=== PATIENT | male | born 1930 | race Caucasian/White ===

== ENCOUNTER 2017-01-29 08:25 | Emergency (ER) | payer MEDICARE ==
[~2017-01-29] VITALS: Ht 167.6 cm; Wt 70.0 kg
[~2017-01-29 08:25] MED LIST: LIPI10TA PO; METO25TA3 PO; MULT1TAB46 PO; OXYC1TAB35 PO; VITA250T3 PO
[2017-01-29 08:40] VITALS: BP 145/63; PULSE 65; RESP 15; TEMP 98.6; O2SAT 95
[2017-01-29 09:22] LABS: AUTOMATED NEUTROPHIL # 12.7 TH/MM3 (1.8-7.7); BASOPHIL # 0.1 TH/MM3 (0-0.2); BASOPHIL % 0.2 % (0.0-2.0); HEMATOCRIT 29.5 % (39.0-51.0); LYMPH % 8.6 % (9.0-44.0); LYMPHOCYTE # 2.3 TH/MM3 (1.0-4.8); MEAN CELL VOLUME 82.6 FL (80.0-100.0); MEAN CORPUSCULAR HEMOGLOBIN 26.7 PG (27.0-34.0); MEAN CORPUSCULAR HGB CONC 32.3 % (32.0-36.0); MONO % 43.7 % (0.0-8.0); NEUT % 47.5 % (16.0-70.0); PLATELET COUNT 65 TH/MM3 (150-450); RED BLOOD COUNT 3.57 MIL/MM3 (4.50-5.90); RED CELL DISTRIBUTION WIDTH 19.4 % (11.6-17.2); WHITE BLOOD COUNT 26.8 TH/MM3 (4.0-11.0)
[2017-01-29 09:24] LABS: HEMO FLAGS AUTO DIFF
[2017-01-29 09:36] LABS: BACTERIA, URINE RARE /hpf; BLOOD, URINE LARGE (NEG); GLUCOSE,URINE NEG (NEG); KETONE, URINE NEG (NEG); NITRITE,URINE NEG (NEG); PH, URINE 5.5 (5.0-8.5); URINE COLOR YELLOW (YELLW/STRAW)
[2017-01-29 09:37] LABS: COMMENT (UR) CULT NOT INDICATED; CULTURE IF INDICATED CULT NOT INDICATED
[2017-01-29 09:39] LABS: ANION GAP 10 MEQ/L (5-15); AST (GOT) 23 U/L (15-37); BICARBONATE 24.3 MEQ/L (21.0-32.0); BLOOD UREA NITROGEN 30 MG/DL (7-18); CHLORIDE 109 MEQ/L (98-107); GLOMERULAR FILTRATION RATE 29 ML/MIN (>89); SODIUM (NA) 143 MEQ/L (136-145)
[2017-01-29 09:46] LABS: ALKALINE PHOSPHATASE 138 U/L (45-117); ALT (GPT) 28 U/L (12-78); TOTAL BILIRUBIN ADULT 0.6 MG/DL (0.2-1.0)
[2017-01-29 10:20] LABS: BANDS 6 % (0-6); METAMYELOCYTES 1 % (0-1); MYELOCYTES 1 % (0-0); NEUTROPHIL # MANUAL DIFF 14.7 TH/MM3 (1.8-7.7); POLYS (SEG NEUTROPHILS) 47 % (16-70); WBC DIFF SAMPLE 100
[2017-01-29 10:21] LABS: PLATELET ESTIMATE SMEAR LOW (NORMAL); PLATELET MORPHOLOGY NORMAL (NORMAL); SCAN/DIFF FINAL DIFF MANUAL
--- NOTE | 2017-01-29 10:37 | PD ---
HPI Chief Complaint: General Weakness Time Seen by Provider: 08:42 Travel History International Travel<30 days: No Contact w/Intl Traveler<30days: No Traveled to known affect area: No History of Present Illness HPI An 86-year-old man who presents to the emergency department brought in by his via EMS for generalized weakness. He is a history of CVA hypertension and low platelets. He recently had surgery for removal multiple basal cell carcinomas on the scalp, right neck, and right hand, with skin graft from his right leg. This was done by Dr. Manav fall. He's been home for couple days and is gotten progressively more weak. Normally he can walk with a lot of assistance from his . Now is unable to get out of bed. No other complaints. 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 Hypertension Oh platelets Social History Alcohol Use: No Tobacco Use: No (QUIT 2001) Allergies-Medications (Allergen,Severity, Reaction): Coded Allergies: penicillin G (Verified Allergy, Severe, RASH, 01/29/17) Reported Meds & Prescriptions Reported Meds & Active Scripts Active Oxycodone-Acetaminophen 7.5-325 mg Tab 1 Tab PO Q4H PRN 5 Days Reported Vitamin C (Ascorbic Acid) 250 Mg Tab 500 Mg PO Multi Vitamin Daily (Multiple Vitamin) 1 Tab Tab PO DAILY Metoprolol Tartrate 25 Mg Tab 25 Mg PO BID Lipitor (Atorvastatin Calcium) 10 Mg Tab 10 Mg PO DAILY Review of Systems Except as stated in HPI: all other systems reviewed are Neg Physical Exam Narrative GENERAL: Elderly 86-year-old man, pale, weak appearing. SKIN: Focused skin assessment warm/dry. HEAD: Large bandage on his head with multiple areas of bandage staple to the skin. EYES: Pupils equal and round. No scleral icterus. No injection or drainage. ENT: No nasal bleeding or discharge. Mucous membranes pink and moist. NECK: Trachea midline. No JVD. CARDIOVASCULAR: Regular rate and rhythm. No murmur appreciated. RESPIRATORY: No accessory muscle use. Clear to auscultation. Breath sounds equal bilaterally. GASTROINTESTINAL: Abdomen soft, non-tender, nondistended. Hepatic and splenic margins not palpable. MUSCULOSKELETAL: No obvious deformities. No edema. NEUROLOGICAL: Awake and alert. No obvious cranial nerve deficits. Motor grossly within normal limits. Normal speech. PSYCHIATRIC: Appropriate mood and affect; insight and judgment normal. Data Data Last Documented VS Vital Signs Date Time Temp Pulse Resp B/P (MAP) Pulse Ox O2 Delivery O2 Flow Rate FiO2 01/29/17 08:40 98.6 65 15 145/63 (90) 95 Room Air Orders Orders Complete Blood Count With Diff (01/29/17 08:42) Comprehensive Metabolic Panel (01/29/17 08:42) Iv Access Insert/Monitor (01/29/17 08:42) Cath For Specimen (01/29/17 08:42) Urinalysis - C+S If Indicated (01/29/17 08:42) Labs Laboratory Tests Test 01/29/17 09:15 White Blood Count 26.8 TH/MM3 Red Blood Count 3.57 MIL/MM3 Hemoglobin 9.5 GM/DL Hematocrit 29.5 % Mean Corpuscular Volume 82.6 FL Mean Corpuscular Hemoglobin 26.7 PG Mean Corpuscular Hemoglobin Concent 32.3 % Red Cell Distribution Width 19.4 % Platelet Count 65 TH/MM3 Mean Platelet Volume 8.9 FL Neutrophils (%) (Auto) 47.5 % Lymphocytes (%) (Auto) 8.6 % Monocytes (%) (Auto) 43.7 % Eosinophils (%) (Auto) 0.0 % Basophils (%) (Auto) 0.2 % Neutrophils # (Auto) 12.7 TH/MM3 Lymphocytes # (Auto) 2.3 TH/MM3 Monocytes # (Auto) 11.7 TH/MM3 Eosinophils # (Auto) 0.0 TH/MM3 Basophils # (Auto) 0.1 TH/MM3 CBC Comment AUTO DIFF Differential Total Cells Counted 100 Neutrophils % (Manual) 47 % Band Neutrophils % 6 % Lymphocytes % 12 % Monocytes % 33 % Neutrophils # (Manual) 14.7 TH/MM3 Metamyelocytes 1 % Myelocytes 1 % Differential Comment FINAL DIFF MANUAL Platelet Estimate LOW Platelet Morphology Comment NORMAL Urine Color YELLOW Urine Turbidity CLEAR Urine pH 5.5 Urine Specific [place] 1.018 Urine Protein 30 mg/dL Urine Glucose (UA) NEG mg/dL Urine Ketones NEG mg/dL Urine Occult Blood LARGE Urine Nitrite NEG Urine Bilirubin NEG Urine Urobilinogen LESS THAN 2.0 MG/DL Urine Leukocyte Esterase NEG Urine RBC 104 /hpf Urine WBC 3 /hpf Urine Bacteria RARE /hpf Microscopic Urinalysis Comment CULT NOT INDICATED Blood Urea Nitrogen 30 MG/DL Creatinine 2.18 MG/DL Random Glucose 144 MG/DL Total Protein 7.7 GM/DL Albumin 3.2 GM/DL Calcium Level 9.3 MG/DL Alkaline Phosphatase 138 U/L Aspartate Amino Transf (AST/SGOT) 23 U/L Alanine Aminotransferase (ALT/SGPT) 28 U/L Total Bilirubin 0.6 MG/DL Sodium Level 143 MEQ/L Potassium Level 4.0 MEQ/L Chloride Level 109 MEQ/L Carbon Dioxide Level 24.3 MEQ/L Anion Gap 10 MEQ/L Estimat Glomerular Filtration Rate 29 ML/MIN MDM Medical Decision Making Medical Screen Exam Complete: Yes Emergency Medical Condition: Yes Interpretation(s) LABS: CBC remarkable for prominent leukocytosis, anemia, normal cytopenia. CMP remarkable for mildly elevated BUN/creatinine consistent with baseline Catheter UA: Hematuria Differential Diagnosis Weakness, infection, anemia, debility, other Narrative Course Medical decision making Is an 86-year-old man who presents emergent arm worsening generalized weakness. Is unable to care for himself at home. He's has marked leukocytosis, which may be related to some underlying bone marrow abnormality. The trauma cytopenias known. We'll discuss with [facility], admission versus observation and custodial longterm placement. I spoke with Dr. Manav fall. He states that unless there is bleeding through the bandage he does not want the bandage change as they are protecting skin grafts. I spoke with Dr. Jaimes. We will the patient would be a candidate for longterm placement. We'll monitor chronic changes and blood counts. Previous he recommended for a bone marrow biopsy but declined. really does not want patient to go to a rehabilitation facility. She would prefer home health which I think is reasonable. We'll set up home health Additional Instructions: Follow-up with Dr. Cid on Saturday as scheduled. Return to the emergency department for any new or worsening symptoms. Med/Other Pt SpecificInfo: Prescription(s) given Disposition: DISCHARGE HOME Condition: Stable Chinmay Qureshi MD Jan 29, 2017 10:37
--- NOTE | 2017-01-29 11:18 | HHI.FF ---
Face to Face Verification Diagnosis: (1) Basal cell carcinoma (2) Weakness (3) Myelodysplasia (myelodysplastic syndrome) Physical Therapy Order: Evaluate and Treat, Improve ambulation, Strength and gait training Home Health Nursing Order: Medical education Signs/symptoms of disease process Wound care and dressing changes Instructions: Do not change bandages until initial follow-up appointment with Dr. Cid on January 31. Home Health Aide Order: To Assist In: Bathing and personal care I have seen patient Ruddy Mireles Jr Cullen on 01/29/17. My clinical findings support the need for the requested home health care services because: Deconditioned w/ increased weakness Limited ability to care for self High risk of falls I certify that my clinical findings support that this patient is homebound because: Post-op weakness Unsafe to leave home unassisted Chinmay Qureshi MD Jan 29, 2017 11:18
--- NOTE | 2017-01-29 12:16 | PD ---
Data Data Last Documented VS Vital Signs Date Time Temp Pulse Resp B/P (MAP) Pulse Ox O2 Delivery O2 Flow Rate FiO2 01/29/17 08:40 98.6 65 15 145/63 (90) 95 Room Air Orders Orders Complete Blood Count With Diff (01/29/17 08:42) Comprehensive Metabolic Panel (01/29/17 08:42) Iv Access Insert/Monitor (01/29/17 08:42) Cath For Specimen (01/29/17 08:42) Urinalysis - C+S If Indicated (01/29/17 08:42) Ed Discharge Order (01/29/17 11:18) ^ Home Health (01/29/17 11:18) (Hub Use Only)Inp Phy Cons/Ref (01/29/17 ) Labs Laboratory Tests Test 01/29/17 09:15 White Blood Count 26.8 TH/MM3 Red Blood Count 3.57 MIL/MM3 Hemoglobin 9.5 GM/DL Hematocrit 29.5 % Mean Corpuscular Volume 82.6 FL Mean Corpuscular Hemoglobin 26.7 PG Mean Corpuscular Hemoglobin Concent 32.3 % Red Cell Distribution Width 19.4 % Platelet Count 65 TH/MM3 Mean Platelet Volume 8.9 FL Neutrophils (%) (Auto) 47.5 % Lymphocytes (%) (Auto) 8.6 % Monocytes (%) (Auto) 43.7 % Eosinophils (%) (Auto) 0.0 % Basophils (%) (Auto) 0.2 % Neutrophils # (Auto) 12.7 TH/MM3 Lymphocytes # (Auto) 2.3 TH/MM3 Monocytes # (Auto) 11.7 TH/MM3 Eosinophils # (Auto) 0.0 TH/MM3 Basophils # (Auto) 0.1 TH/MM3 CBC Comment AUTO DIFF Differential Total Cells Counted 100 Neutrophils % (Manual) 47 % Band Neutrophils % 6 % Lymphocytes % 12 % Monocytes % 33 % Neutrophils # (Manual) 14.7 TH/MM3 Metamyelocytes 1 % Myelocytes 1 % Differential Comment FINAL DIFF MANUAL Platelet Estimate LOW Platelet Morphology Comment NORMAL Urine Color YELLOW Urine Turbidity CLEAR Urine pH 5.5 Urine Specific [place] 1.018 Urine Protein 30 mg/dL Urine Glucose (UA) NEG mg/dL Urine Ketones NEG mg/dL Urine Occult Blood LARGE Urine Nitrite NEG Urine Bilirubin NEG Urine Urobilinogen LESS THAN 2.0 MG/DL Urine Leukocyte Esterase NEG Urine RBC 104 /hpf Urine WBC 3 /hpf Urine Bacteria RARE /hpf Microscopic Urinalysis Comment CULT NOT INDICATED Blood Urea Nitrogen 30 MG/DL Creatinine 2.18 MG/DL Random Glucose 144 MG/DL Total Protein 7.7 GM/DL Albumin 3.2 GM/DL Calcium Level 9.3 MG/DL Alkaline Phosphatase 138 U/L Aspartate Amino Transf (AST/SGOT) 23 U/L Alanine Aminotransferase (ALT/SGPT) 28 U/L Total Bilirubin 0.6 MG/DL Sodium Level 143 MEQ/L Potassium Level 4.0 MEQ/L Chloride Level 109 MEQ/L Carbon Dioxide Level 24.3 MEQ/L Anion Gap 10 MEQ/L Estimat Glomerular Filtration Rate 29 ML/MIN MDM Supervised Visit with FRANK: No Diagnosis Primary Impression: Weakness Additional Impressions: Myelodysplasia (myelodysplastic syndrome) Basal cell carcinoma Patient Instructions: General Instructions Departure Forms: Tests/Procedures Additional Instruction: Follow-up with Dr. Cid on Saturday as scheduled. Return to the emergency department for any new or worsening symptoms. Disposition: DISCHARGE HOME Condition: Stable Chinmay Qureshi MD Jan 29, 2017 12:16
== END 2017-01-29 12:35 | disposition home or self-care (01) ==
LOC: NEPC 08:25
DX: R53.1 Weakness (principal); D46.9 Myelodysplastic syndrome, unspecified; C44.41 Basal cell carcinoma of skin of scalp and neck; C79.2 Secondary malignant neoplasm of skin; C79.89 Secondary malignant neoplasm of other specified sites; I69.951 Hemiplegia and hemiparesis following unspecified cerebrovascular disease affecting right dominant side; I10 Essential (primary) hypertension; D72.829 Elevated white blood cell count, unspecified; Z79.899 Other long term (current) drug therapy
CPT/HCPCS: 80053; 81001; 85007; 85027; 99283; P9612

== ENCOUNTER 2017-02-06 05:27 | Inpatient (IN) | payer MEDICARE ==
[~2017-02-06] VITALS: Ht 170.2 cm; Wt 70.9 kg
[2017-02-06] MEDS ORDERED: LIDOCAINE 1%/EPINEPHrine 1:100,000 SOLN 20 ML VIAL ONE (05:35)
[2017-02-06 05:40] VITALS: BP_SYST 82; BP_SYST 85; BP_DIAS 45; BP_DIAS 48; PULSE 97; RESP 16; TEMP 98; O2SAT 97
[2017-02-06 05:58] VITALS: BP 106/60; PULSE 96; RESP 16; O2SAT 97
--- NOTE | 2017-02-06 05:59 | PD ---
HPI Chief Complaint: Laceration/Skin Injury Time Seen by Provider: 05:57 Travel History International Travel<30 days: No Contact w/Intl Traveler<30days: No Traveled to known affect area: No History of Present Illness HPI Patient is an 86-year-old male coming from home 3 weeks ago he had skin grafts for basal cell carcinoma and tonight an area near the suture site started to bleed pumping slightly like an arteriole. Patient denies pain but found him to be covered in blood paramedics there was a lot of blood at the scene. Patient's pressure initially is 85/40 but he has not altered he does not look significantly help. Bleeding is immediately controlled with pressure directly from the nurse. I am called to bedside where we get a cauterizing agent a powderlike silver nitrate with a Q-tip applied pressure and then I injected 1% with epi to the area and the bleeding stops labs are sent type and screen H&H for further evaluation. Patient has a platelet disorder apparently that causes him to bleed more than normal according to . 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) Endocrine: Yes Genitourinary: Yes (BLADDER CA) Immune Disorder: No Musculoskeletal: No Neurologic: Yes (CVA, NEUROPATHY, MONOPLEGIA OF RIGHT LOWER LIMB) Psychiatric: No Reproductive: No Respiratory: Yes (HX OF PNEUMONIA) Thyroid Disease: No Past Surgical History AICD: No Arteriovenous Shunt: No Eye Surgery: Yes (FROM STROKE) Genitourinary Surgery: Yes (BLADDER CA- SCRAPED BLADDER, CYSTOSCOPY) Insulin Pump: No Joint Replacement: No Pacemaker: No Other Surgery: Yes Social History Alcohol Use: No Tobacco Use: No (QUIT 2001) Substance Use: No Allergies-Medications (Allergen,Severity, Reaction): Coded Allergies: penicillin G (Verified Allergy, Severe, RASH, 02/06/17) Reported Meds & Prescriptions Reported Meds & Active Scripts Active Oxycodone-Acetaminophen 7.5-325 mg Tab 1 Tab PO Q4H PRN 5 Days Reported Vitamin C (Ascorbic Acid) 250 Mg Tab 500 Mg PO Multi Vitamin Daily (Multiple Vitamin) 1 Tab Tab PO DAILY Metoprolol Tartrate 25 Mg Tab 25 Mg PO BID Lipitor (Atorvastatin Calcium) 10 Mg Tab 10 Mg PO DAILY Review of Systems Except as stated in HPI: all other systems reviewed are Neg (bleeding from arteriole in yazidi on left scalp ) Skin: Positive Other (patient is bleeding from a skin tag in the middle of his surgical skin graft to his left forehead arterial pumping) Physical Exam Narrative GENERAL: excessive blood coagulated on ear from arteriole leaking from left yazidi. SKIN: Warm and dry. oozing pumping arteriole left skin tag HEAD: Atraumatic. Normocephalic. Patient has a arterial that is pumping pulsating blood right above the yazidi in the middle of the skin graft whether is a skin tag it seems to be hyper vascularized losing pulsating blood is down the entire ear and cheek coagulating EYES: Pupils equal and round. No scleral icterus. No injection or drainage. ENT: No nasal bleeding or discharge. Mucous membranes pink and moist. NECK: Trachea midline. No JVD. CARDIOVASCULAR: Regular rate and rhythm. RESPIRATORY: No accessory muscle use. Clear to auscultation. Breath sounds equal bilaterally. GASTROINTESTINAL: Abdomen soft, non-tender, nondistended. Hepatic and splenic margins not palpable. MUSCULOSKELETAL: Extremities without clubbing, cyanosis, or edema. No obvious deformities. NEUROLOGICAL: Awake and alert. No obvious cranial nerve deficits. Motor grossly within normal limits. Five out of 5 muscle strength in the arms and legs. Normal speech. PSYCHIATRIC: Appropriate mood and affect; insight and judgment normal. Data Data Last Documented VS Vital Signs Date Time Temp Pulse Resp B/P (MAP) Pulse Ox O2 Delivery O2 Flow Rate FiO2 02/06/17 06:48 91 16 102/58 (73) 96 Room Air 02/06/17 05:40 98.0 Orders Orders Lidocai-Epi 1%-1:100,000 Inj (Xylocaine- (02/06/17 05:35) Lidocai-Epi 1%-1:100,000 Inj (Xylocaine- (02/06/17 06:15) Complete Blood Count With Diff (02/06/17 06:06) Comprehensive Metabolic Panel (02/06/17 06:06) Prothrombin Time / Inr (Pt) (02/06/17 06:06) Type And Screen (02/06/17 06:06) Wound Care (02/06/17 06:07) Sodium Chlor 0.9% 250 Ml Inj (Ns 250 Ml (02/06/17 07:00) Chest, Single Ap (02/06/17 06:52) Urinalysis - C+S If Indicated (02/06/17 06:54) Admit Order (Ed Use Only) (02/06/17 07:09) Atorvastatin (Lipitor) (02/06/17 09:00) Metoprolol Tartrate (Lopressor) (02/06/17 09:00) Admit To Inpatient (02/06/17 ) Vital Signs (Adult) Q4H (02/06/17 08:25) Activity Bed Rest With Brp (02/06/17 08:25) Intake + Output FABRICE.QSHIFT (02/06/17 08:25) Sodium Chloride 0.9% Flush (Ns Flush) (02/06/17 08:30) Sodium Chloride 0.9% Flush (Ns Flush) (02/06/17 09:00) Acetaminophen (Tylenol) (02/06/17 08:30) Ondansetron Inj (Zofran Inj) (02/06/17 08:30) Comprehensive Metabolic Panel (02/07/17 06:00) Complete Blood Count With Diff (02/07/17 06:00) Naloxone Inj (Narcan Inj) (02/06/17 08:30) Inpatient Certification (02/06/17 ) Artemio Bilateral/Knee High FABRICE.QSHIFT (02/06/17 08:25) Labs Laboratory Tests Test 02/06/17 05:40 White Blood Count 70.4 TH/MM3 Red Blood Count 3.11 MIL/MM3 Hemoglobin 8.4 GM/DL Hematocrit 25.9 % Mean Corpuscular Volume 83.1 FL Mean Corpuscular Hemoglobin 27.1 PG Mean Corpuscular Hemoglobin Concent 32.6 % Red Cell Distribution Width 18.5 % Platelet Count 192 TH/MM3 Mean Platelet Volume 9.9 FL CBC Comment AUTO DIFF Differential Total Cells Counted 100 Neutrophils % (Manual) 59 % Band Neutrophils % 11 % Lymphocytes % 6 % Monocytes % 15 % Neutrophils # (Manual) 55.6 TH/MM3 Metamyelocytes 5 % Myelocytes 4 % Differential Comment FINAL DIFF MANUAL Platelet Estimate NORMAL Platelet Morphology Comment NORMAL Prothrombin Time 12.5 SEC Prothromb Time International Ratio 1.1 RATIO Blood Urea Nitrogen 54 MG/DL Creatinine 3.10 MG/DL Random Glucose 261 MG/DL Total Protein 7.3 GM/DL Albumin 2.7 GM/DL Calcium Level 8.5 MG/DL Alkaline Phosphatase 140 U/L Aspartate Amino Transf (AST/SGOT) 34 U/L Alanine Aminotransferase (ALT/SGPT) 39 U/L Total Bilirubin 0.5 MG/DL Sodium Level 142 MEQ/L Potassium Level 4.7 MEQ/L Chloride Level 110 MEQ/L Carbon Dioxide Level 18.3 MEQ/L Anion Gap 14 MEQ/L Estimat Glomerular Filtration Rate 19 ML/MIN MDM Medical Decision Making Medical Screen Exam Complete: Yes Emergency Medical Condition: Yes Differential Diagnosis Arterial bleed versus venule bleed versus hypervascular skin tag bleeding versus coagulopathy Narrative Course I get the cauterizing chemical powder apply it with a Q-tip to the area that I have been holding pressure on and then I apply pressure within a be deep had over the cauterizing chemical bleeding is stopped with the cauterization and then a wound dressing is placed over the Q-tip with the cauterizing material which has stopped bleeding clots forming. I didn't call admit him for the anemia which possibly is related to the blood loss from this arterial bleed that was happening all night while he was sleeping as well as the 70 WBCs and his serum which possibly is related to some kind of blastic crisis. He was seen by a hematoma doctor while he was being preop'd for the skin graft in December. was only aware that he was having platelet issues but did not know anything about any blast white blood cells. I discussed it with the admitting Dr. Abner Sheridan who is going to admit the patient patient is stable at this time possibly will need blood transfusion hematology consult and as plastics or skin consult for the bleed that is cauterized successfully controlled at this point. Admit to medicine Diagnosis Primary Impression: Bleeding diathesis Additional Impression: Hemorrhagic diathesis Admitting Information Admitting Physician Requests: Barrington Chambers MD Feb 06, 2017 05:59
[2017-02-06] MEDS ORDERED: LIDOCAINE 1%/EPINEPHrine 1:100,000 SOLN 20 ML VIAL INFIL ONE (06:15)
[2017-02-06 06:24] LABS: HEMATOCRIT 25.9 % (39.0-51.0); MEAN CELL VOLUME 83.1 FL (80.0-100.0); MEAN CORPUSCULAR HEMOGLOBIN 27.1 PG (27.0-34.0); MEAN CORPUSCULAR HGB CONC 32.6 % (32.0-36.0); PLATELET COUNT 192 TH/MM3 (150-450); RED BLOOD COUNT 3.11 MIL/MM3 (4.50-5.90); RED CELL DISTRIBUTION WIDTH 18.5 % (11.6-17.2); WHITE BLOOD COUNT 70.4 TH/MM3 (4.0-11.0)
[2017-02-06 06:32] LABS: CHLORIDE 110 MEQ/L (98-107); POTASSIUM 4.7 MEQ/L (3.5-5.1); SODIUM (NA) 142 MEQ/L (136-145)
[2017-02-06 06:33] LABS: HEMO FLAGS AUTO DIFF
[2017-02-06 06:35] LABS: INTERNATIONAL NORMALIZED RATIO 1.1 RATIO; PROTHROMBIN TIME - PATIENT 12.5 SEC (9.8-11.6)
[2017-02-06 06:36] LABS: ANION GAP 14 MEQ/L (5-15); BICARBONATE 18.3 MEQ/L (21.0-32.0); BLOOD UREA NITROGEN 54 MG/DL (7-18)
[2017-02-06 06:39] LABS: ALT (GPT) 39 U/L (12-78); AST (GOT) 34 U/L (15-37); GLOMERULAR FILTRATION RATE 19 ML/MIN (>89)
[2017-02-06 06:40] LABS: TOTAL BILIRUBIN ADULT 0.5 MG/DL (0.2-1.0)
[2017-02-06 06:42] LABS: ALKALINE PHOSPHATASE 140 U/L (45-117)
[2017-02-06 06:48] VITALS: BP 102/58; PULSE 91; RESP 16; O2SAT 96
[2017-02-06] MEDS ORDERED: SODIUM CHLOR 0.9% 250 ML INJ 250 ML IV ONE (07:00)
--- NOTE | 2017-02-06 07:17 | RADRPT ---
EXAM DATE/TIME: 02/06/2017 07:01 [facility] COMPARISON: CHEST SINGLE AP, July 11, 2013, 9:12. INDICATIONS : Cough MEDICAL HISTORY : Large left thyroid nodule seen on prior chest CT. Hypertension. Carcinoma, bladder. Pneumonia SURGICAL HISTORY : None. ENCOUNTER: Initial ACUITY: 1 day PAIN SCORE: 0/10 LOCATION: Bilateral chest FINDINGS: A single view of the chest demonstrates the lungs to be symmetrically aerated without evidence of con fluent infiltrate or effusion. Abnormal soft tissue density remains in the left paratracheal region w ith deviation of the trachea to the right. The study remains Midinspiratory. The cardiomediastinal co ntours are unremarkable. Osseous structures are intact. CONCLUSION: 1. No acute cardiopulmonary disease. There is no evidence of pneumonia. 2. 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 This is unchanged. Hernando Coleman MD on February 06, 2017 at 7:13 Board Certified Radiologist. This report was verified electronically.
[2017-02-06 07:20] LABS: BANDS 11 % (0-6); METAMYELOCYTES 5 % (0-1); MYELOCYTES 4 % (0-0); NEUTROPHIL # MANUAL DIFF 55.6 TH/MM3 (1.8-7.7); PLATELET ESTIMATE SMEAR NORMAL (NORMAL); PLATELET MORPHOLOGY NORMAL (NORMAL); POLYS (SEG NEUTROPHILS) 59 % (16-70); WBC DIFF SAMPLE 100
[2017-02-06 07:21] LABS: SCAN/DIFF FINAL DIFF MANUAL
[2017-02-06 08:30] VITALS: BP 107/55
[2017-02-06] MEDS ORDERED: NALOXONE HCL 0.4 MG/ML AMP IV PUSH PRN (08:30)
[2017-02-06] MEDS ORDERED: SODIUM CHLORIDE 0.9% FLUSH 10 ML FLUSH IV FLUSH PRN (08:30)
[2017-02-06] MEDS ORDERED: ONDANSETRON HCL 4 MG/2 ML VIAL IVP PRN (08:30)
[2017-02-06] MEDS ORDERED: ACETAMINOPHEN 325 MG TAB PO PRN (08:30)
[2017-02-06] MEDS: SODIUM CHLOR 0.9% 1000 ML INJ 1,000 ML IV SCH ×2 (08:45→18:45)
[2017-02-06] MEDS: SODIUM CHLORIDE 0.9% FLUSH 10 ML FLUSH IV FLUSH SCH ×2 (09:00→21:39)
[2017-02-06] MEDS: METOPROLOL TARTRATE 25 MG TAB PO SCH ×2 (11:04→21:39)
[2017-02-06] MEDS: ATORVASTATIN 10 MG TAB PO SCH (11:04)
--- NOTE | 2017-02-06 12:39 | MH ---
cc: HYUN SUAREZ M.D. DATE OF ADMISSION 02/06/2017 ADMISSION DIAGNOSIS Anemia, leukocytosis HISTORY OF PRESENT ILLNESS Mr. Berman is a very pleasant 86-year-old patient of Dr. Patel who had excision of multiple basal cell carcinomas by Dr. Cid on January 24. He had bitemporal as well on the dorsum on his right hand. Apparently the patient has done well after his procedures and actually has had a followup appointment Dr. 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 She called the fire department and they actually had [facility] come and he was brought to the emergency room. There, he was seen by the ER physician and apparently when the area was examined, it looked like it was pumping slightly. He was seen by the ER doctor who felt that the bleeding came from an arterial that was compressible and the area was cauterized. However, there was a concern that there was a significant amount of blood loss. On evaluation of his lab work, his hemoglobin was 8.4, his hematocrit was 25.9. He also had a leukocytosis of 70.4. Apparently the patient does have a history of anemia and actually thrombocytopenia for which he has been following with Dr. Golden. He never has had a significant leukocytosis. The most his white count has been elevated has been, it looks like, 15,000. His anemia was being managed by iron replacement and at the time of admission for the procedure, his hemoglobin was 9.8. When he was in the emergency room last week, it was 9.5, today it was 8.4. His hematocrit had been fairly stable at 30.8, 29.5 and now dropped to 25.9. Because of the anemia and the significant leukocytosis, we decided to admit the patient. The patient states he has been doing fairly well. He does not complain of any chest pain or shortness of breath. He is not very active. 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 He does have some bruises around his upper extremities, but his states that they had moved to a new apartment and since moving there he has had more issues with some balance and he has had a couple of falls. No lightheadedness or dizziness. PAST MEDICAL HISTORY Significant for: 1. CVA 2. He has a history of PSVT. 3. Diabetes apparently diet-controlled. 4. Question of some mild memory loss. 5. As stated, he has had the anemia, thrombocytopenia and leukocytosis followed by Dr. Golden. He was taking some iron pills and as a result part of the anemia was due to iron deficiency. 6. He has a history a low grade bladder cancer. 7. BPH with some obstruction. 8. He has CKD III and hyperlipidemia. PAST SURGICAL HISTORY 1. Cystoscopy 2. Basal cell excision on 01/24 of the right and left restorationism and the right hand. ALLERGIES He is allergic to PENICILLIN WHICH CAUSES A RASH. MEDICATIONS Medications are few, he only takes atorvastatin 10 mg daily, metoprolol tartrate 25 twice a day. SOCIAL HISTORY He is . He is retired. He is here with his at his bedside. HABITS He does not consume alcohol. He has a prior history of smoking one-pack a day for 40 years. He stopped in 2005. REVIEW OF SYSTEMS See HPI. According to his , he has had a good appetite. He has not complained of any chest pain or shortness of breath. He has not had any cough. He did have some constipation with iron pills and she had to cut those back a little bit. He says his stream is okay. He denies any problems with urination. He does have the easy bruising from the falls. PHYSICAL EXAM VITAL SIGNS: Temperature was 98, pulse is 90, respirations 18, blood pressure was 107/55, pulse ox on room air was 98%. GENERAL: This is a very pleasant elderly gentleman lying in bed. His head is currently wrapped with gauze bandage throughout. HEAD, EYES, EARS, NOSE, AND THROAT: He does not quite make eye contact as apparently he has some visual difficulties and he is missing his dentures. NECK: His neck is supple. LUNGS: His lungs are clear to auscultation. HEART: His heart is regular. I am not hearing any ectopy. ABDOMEN: His abdomen has good bowel sounds in all four quadrants. EXTREMITIES: His muscle strength in the right lower extremity I would say is maybe 2/5. He does have some evidence of some atrophy. He has no clubbing, cyanosis or edema. His right hand is completely bandaged. I elected not to remove his bandages as ultimately the plastic surgeon will be seeing him. LABORATORY DATA Lab work that was obtained in the ER showed a white count of 70.4, hemoglobin of 8.4, hematocrit of 25.9, platelet count of 192. Sodium was 142, potassium was 4.2, carbon dioxide was 18.3, BUN was 54 with a creatinine of 3.10, random glucose was 261, albumin was 2.7. His PT was 12.5 with an INR of 1.1. Chest x-ray that was done day showed no acute cardiopulmonary disease. There was no evidence of pneumonia. He had a known left thyroid mass with slight change in the deviation. ASSESSMENT/PLAN This is an 86-year-old gentleman with a self-inflicted laceration at a surgical site. At this point, the bleeding has been stopped. His head is currently bandaged. I see no obvious bleeding. Although I had not asked, he is supposed to see Dr. Cid tomorrow actually for reevaluation as to how the wound is going. I am actually going to have him come and see him today in the hospital. In terms of the leukocytosis, this is a rather significant increase for him. The tells me that they have never really done a bone marrow evaluation on him as they were trying to manage him conservatively between that and the anemia. I think at this point, I will ask Dr. Golden or whoever is covering for him to reevaluate him. He does have CKD III, but his renal function is actually much worse on today's visit. There may be a prerenal component. I am going to try to hydrate him gently over the next 24 hours. For his diabetes, we will continue a diabetic diet. Apparently, he has not had to take any medications for this. For his history of SVT, he will continue on metoprolol. Thank you. MD JUDD Pineda/CRISTHIAN /11:45 AM /12:18 PM
[2017-02-06] MEDS ORDERED: LIDOCAINE 2%/EPINEPHrine 1:100,000 50ML MDV INFIL ONE ×2 (13:45)
[2017-02-06] MEDS ORDERED: SODIUM BICARBONATE 8.4% SOLN 50 MEQ/50 ML VIAL PRN (13:45)
[2017-02-06] MEDS ORDERED: LIDOCAINE HCL 1% 50 ML VIAL ONE (13:49)
--- NOTE | 2017-02-06 18:23 | MB ---
cc: JUNITO POWELL M.D. DATE OF CONSULTATION 02/06/2017 REASON FOR CONSULTATION Consult requested by Dr. Whalen for evaluation of leukocytosis. HISTORY OF PRESENT ILLNESS Ruddy is a pleasant 86-year-old male. He is under the care of Dr. Golden for anemia and thrombocytopenia. When Dr. Golden saw him had recommended bone marrow biopsy which the patient has decided against it. He was given iron for the anemia. The patient recently underwent surgery for multiple skin cancers on his scalp by Dr. Cid. He tolerated the surgery well. However, the patient had severe itching and he was scratching his head and bleeding was noted at the surgical scar. His called paramedics and the patient was brought into the emergency room. In the emergency room they were able to stop the bleeding. He had a cauterization. They also put the pressure bandage to control the bleeding. The CBC results showed white count 17.4, hemoglobin 8.4, hematocrit 25.9, platelet count is 192. The differential count is significant for 11% bands, 15% monocytes, 55% neutrophils, 5% metamyelocytes, 4% myelocytes. Because of the leukocytosis, anemia I have been asked to see him for further evaluation. The patient has a history of stroke. He has right hemiparesis. He has dysarthria. He is unable to give much history. History is obtained through the review of the records. The patient denies any further bleeding. He denies any nausea or vomiting. He denies any headaches or dizziness. He has multiple bruises on his right arm. He had recent multiple falls since moving to a new apartment. His is not present at this time. He does not have any fevers. The rest of the review of system is negative. PAST MEDICAL HISTORY 1. Left CVA with right hemiparesis. 2. Paroxysmal supraventricular tachycardia. 3. Diabetes mellitus. 4. Dementia. 5. History of urinary bladder cancer. 6. BPH. 7. Chronic kidney disease. 8. Hypercholesterolemia. 9. Skin cancer on the scalp. PAST SURGICAL HISTORY 1. Basal cell cancer removed from the scalp two weeks ago. 2. He also had cystoscopy for bladder cancer. ALLERGIES PENICILLIN. MEDICATIONS Please see EMR. MEDICATIONS 1. Atorvastatin. 2. Metoprolol. FAMILY HISTORY Noncontributory. SOCIAL HISTORY The patient is , does not smoke cigarettes, does not drink alcohol. PHYSICAL EXAMINATION GENERAL: This is a well-developed, elderly white male in no apparent distress. VITAL SIGNS: Temperature 98, heart rate is 97, blood pressure 82/48, O2 saturation 97% on room air. HEENT: Surgical compressive dressing noted on his head due to oozing from the recent surgery for skin cancer. The patient has dysarthria from his previous stroke. NECK: No lymphadenopathy noted. LUNGS: Decreased breath sounds on both sides. CARDIOVASCULAR: Heart is regular rate and rhythm. ABDOMEN: Soft and nontender. No hepatosplenomegaly. EXTREMITIES: No pedal edema. NEUROLOGIC: Awake, alert, oriented x2. Right hemiparesis noted. SKIN: Multiple bruises noted. ASSESSMENT 1. Severe leukocytosis with bandemia, monocytosis, neutrophilia metamyelocytes, myelocytes. This is most likely consistent with myeloproliferative disorders such as either chronic myelomonocytic leukemia or chronic myeloid leukemia. 2. Anemia most likely due to myeloproliferative disorder. 3. Thrombocytopenia which has resolved, his platelet count is 192. PLAN I have reviewed his available records and I have discussed with the patient regarding the severe leukocytosis. His is not present to discuss. I believe patient has developed myeloproliferative disorder. He has a history of chronic monocytosis. 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 I will order a FLAVIO-2 mutation, BCR-ABL by FISH and flow cytometry for further evaluation. I will also check the uric acid to see whether the patient is having any tumor lysis. He has chronic renal insufficiency. His creatinine is 3.10. GFR is 19. There could be a prerenal component. The patient is getting hydration to see whether his kidney function improves with that. I will also check the B12, folate and iron studies for his anemia but I think his anemia is due to the myeloproliferative disorder. I will have his oncologist Dr. Golden to see him tomorrow. Further recommendations based on his hospital stay. Thank you for asking my opinion. MD ROSETTE Clark/MATT /5:29 PM /6:04 PM RAHUL
[2017-02-06 20:00] VITALS: BP 128/69; PULSE 76; RESP 20; TEMP 96.5; O2SAT 96
[2017-02-06 20:03] LABS: LDH SERUM 184 U/L (87-241); TRANSFERRIN IRON PROFILE 134 MG/DL (200-360); URIC ACID 9.1 MG/DL (2.6-7.2)
[2017-02-06 20:28] LABS: FERRITIN 76 NG/ML (26-388)
[2017-02-07] VITALS (13 sets, daily range): BP systolic 98–119; BP diastolic 50–61; PULSE 67–76; RESP 18–22; TEMP 96.5–98.6; O2SAT 93–97
[2017-02-07] MEDS: SODIUM CHLOR 0.9% 1000 ML INJ 1,000 ML IV SCH ×2 (04:45→12:40)
[2017-02-07 08:46] LABS: MEAN CELL VOLUME 81.7 FL (80.0-100.0); MEAN CORPUSCULAR HEMOGLOBIN 27.2 PG (27.0-34.0); MEAN CORPUSCULAR HGB CONC 33.3 % (32.0-36.0); PLATELET COUNT 137 TH/MM3 (150-450); RED BLOOD COUNT 2.42 MIL/MM3 (4.50-5.90); RED CELL DISTRIBUTION WIDTH 18.2 % (11.6-17.2); WHITE BLOOD COUNT 37.9 TH/MM3 (4.0-11.0)
[2017-02-07 08:53] LABS: HEMO FLAGS AUTO DIFF
[2017-02-07 08:55] LABS: HEMATOCRIT 19.8 % (39.0-51.0)
[2017-02-07 09:02] LABS: ALKALINE PHOSPHATASE 105 U/L (45-117); ALT (GPT) 27 U/L (12-78); ANION GAP 12 MEQ/L (5-15); AST (GOT) 14 U/L (15-37); BICARBONATE 20.2 MEQ/L (21.0-32.0); BLOOD UREA NITROGEN 57 MG/DL (7-18); CHLORIDE 111 MEQ/L (98-107); GLOMERULAR FILTRATION RATE 20 ML/MIN (>89); POTASSIUM 3.7 MEQ/L (3.5-5.1); SODIUM (NA) 143 MEQ/L (136-145); TOTAL BILIRUBIN ADULT 0.3 MG/DL (0.2-1.0)
[2017-02-07] MEDS: SODIUM CHLORIDE 0.9% FLUSH 10 ML FLUSH IV FLUSH SCH ×2 (09:37→21:39)
[2017-02-07] MEDS: ATORVASTATIN 10 MG TAB PO SCH (09:37)
[2017-02-07] MEDS: METOPROLOL TARTRATE 25 MG TAB PO SCH ×2 (09:37→21:39)
[2017-02-07 10:04] LABS: BANDS 10 % (0-6); METAMYELOCYTES 4 % (0-1); MYELOCYTES 3 % (0-0); NEUTROPHIL # MANUAL DIFF 26.2 TH/MM3 (1.8-7.7); PLATELET ESTIMATE SMEAR NORMAL (NORMAL); PLATELET MORPHOLOGY NORMAL (NORMAL); POLYS (SEG NEUTROPHILS) 51 % (16-70); PROMYELOCYTES 1 % (0-0); SCAN/DIFF FINAL DIFF MANUAL; WBC DIFF SAMPLE 100
[2017-02-07] MEDS ORDERED: GLUCAGON 1 MG/ML VIAL OTHER PRN (11:30)
[2017-02-07] MEDS ORDERED: DEXTROSE 50% IN WATER 50 ML VIAL(D50) IV PUSH PRN (11:30)
--- NOTE | 2017-02-07 11:39 | MB ---
cc: INDERJIT DESAI M.D. DATE OF CONSULTATION 02/07/2017 REASON FOR CONSULTATION Acute bleeding from the left moravian surgical site. HISTORY This is an 86-year-old white male operated by myself approximately 10 days ago. He had multiple areas of basal cell carcinoma excised, three on his head and one on the right hand, also a benign lesion from the right neck. The patient has split-thickness skin graft on his left moravian, right moravian and parieto-occipital region. The patient apparently had acute bleeding from the left moravian area. He may possibly have scraped the area in his sleep. A fair amount of blood was lost actually, but documentation was available as to the volume of blood loss, however, he has been admitted through the [facility]. Initial hemostasis was done through the emergency room and it seems to have done well this morning. The hemoglobin level noted at the time of emergency room is 8 and the platelet counts are low. The patient is known to have myelodysplastic disorder leading to low platelet count and onto bleeding. He is being admitted for medical treatment and may be getting hematology consultation and possibly may get a combination of platelet and blood transfusion as well. PAST MEDICAL HISTORY He is medical history is otherwise well documented. CURRENT MEDICATIONS AND ALLERGIES The current medications and allergies are also as per the records. PHYSICAL EXAM This is an 86-year-old white male on the surgical floor bed setting. He is alert, oriented, cooperative and does not seem to be in acute distress. He is able to move around easily in the bed and was having a meal when I saw him. GENERAL: Again, examination is within normal range. He is not in any cardiorespiratory distress. HEAD, EYES, EARS, NOSE, AND THROAT: Local examination, the dressing on the head was removed leaving the occipital and the right moravian area covering intact. The left side was opened completely to the graft. The graft is taking well. There is a small sized applied to the area with a local pressure on the Q-Tip and that portion of the graft is black and may be discolored by the chemical cautery. There is no active bleeding. The location corresponds to the anterior superficial temporal artery. The bleeding had been arterial in nature. At the present time, there is no hematoma or any sign of active bleeding. The area was dressed. The chemical Q-tip was removed and local Telfa pad was applied. Local 4x4 pressure was applied and an MALLORY bandage was applied to apply additional pressure to the area keeping it comfortable for the patient. RECOMMENDATIONS The patient can be watched for any active bleeding from this site. I will be available in case any suture ligature is needed. He can also be treated from a medical standpoint including blood and platelets placement as clinically appropriate. The dressings do not need to be change. He will be following up with me in the [facility] and the removal of the suture and staple will be done in the clinic. MD DOMENICA Glasgow/CRISTHIAN /11:09 AM /11:27 AM
--- NOTE | 2017-02-07 11:49 | HHI.PR ---
Subjective Remarks no complaints, no chest pain or sob, per eating well Objective Vitals Vital Signs Date Time Temp Pulse Resp B/P (MAP) Pulse Ox O2 Delivery O2 Flow Rate FiO2 02/07/17 08:00 97.5 68 20 119/55 (76) 94 02/07/17 00:00 96.8 69 22 112/61 (78) 94 02/06/17 20:00 96.5 76 20 128/69 (88) 96 Result Diagram: 02/07/1782902/07/17829 Objective Remarks Lying in hospital bed resting arousable Head and rt hand bandaged lungs clear to auscultation bilaterally heart rrr not tachycardic abdomen good bowel sounds TEDs on A/P Problem List: (1) Myelodysplasia (myelodysplastic syndrome) ICD Codes: D46.9 - Myelodysplastic syndrome, unspecified Plan: acute worsening of leukocytosis and anemia, being evaluated by hematology , transfusion ordered (2) Diabetes mellitus ICD Codes: E11.9 - Type 2 diabetes mellitus without complications Status: Chronic Plan: fasting sugars in 200's has been diet controlled, will cover with sliding scale (3) Basal cell carcinoma ICD Codes: C44.91 - Basal cell carcinoma of skin, unspecified Plan: s/p excision and , bleeding from arteriole per ER note , Seen by Dr Cid and will follow with him as outpatient Problem Qualifiers (1) Diabetes mellitus: Deepa Whalen MD Feb 07, 2017 11:49
[2017-02-07] MEDS: INSULIN ASPART SUPPLEMENTAL SCALE SQ SCH ×4 (11:52→21:39)
--- NOTE | 2017-02-07 16:27 | PD.ONC.PN ---
Subjective Subjective Remarks No more bleeding. Receiving PRBC transfusion. Denies CP/SOB. at bed side. Objective Data Date Time Temp Pulse Resp B/P (MAP) Pulse Ox O2 Delivery O2 Flow Rate FiO2 02/07/17 13:18 97.6 72 18 98/58 97 02/07/17 13:01 97.4 71 18 105/58 94 02/07/17 12:48 97.8 72 18 108/58 96 02/07/17 12:33 98.4 71 18 105/55 94 02/07/17 12:00 97.0 71 18 107/55 (72) 93 02/07/17 08:00 97.5 68 20 119/55 (76) 94 02/07/17 00:00 96.8 69 22 112/61 (78) 94 02/06/17 20:00 96.5 76 20 128/69 (88) 96 02/07/17 02/07/17 02/07/17 07:00 15:00 23:00 Intake Total 978 ml 250 ml 1122 ml Balance 978 ml 250 ml 1122 ml Result Diagram: 02/07/17 0830 02/07/17 0830 Laboratory Results Laboratory Tests Test 02/06/17 18:40 02/07/17 08:30 Uric Acid 9.1 MG/DL Iron Level 14 MCG/DL Total Iron Binding Capacity 188 MCG/DL Percent Iron Saturation 7.5 % Ferritin 76 NG/ML Lactate Dehydrogenase 184 U/L Vitamin B12 Level 1019 PG/ML Folate GREATER THAN 20.0 NG/ML White Blood Count 37.9 TH/MM3 Red Blood Count 2.42 MIL/MM3 Hemoglobin 6.6 GM/DL Hematocrit 19.8 % Mean Corpuscular Volume 81.7 FL Mean Corpuscular Hemoglobin 27.2 PG Mean Corpuscular Hemoglobin Concent 33.3 % Red Cell Distribution Width 18.2 % Platelet Count 137 TH/MM3 Mean Platelet Volume 9.7 FL CBC Comment AUTO DIFF Differential Total Cells Counted 100 Neutrophils % (Manual) 51 % Band Neutrophils % 10 % Lymphocytes % 9 % Monocytes % 22 % Neutrophils # (Manual) 26.2 TH/MM3 Metamyelocytes 4 % Myelocytes 3 % Promyelocytes 1 % Differential Comment FINAL DIFF MANUAL Platelet Estimate NORMAL Platelet Morphology Comment NORMAL Blood Urea Nitrogen 57 MG/DL Creatinine 3.00 MG/DL Random Glucose 202 MG/DL Total Protein 6.1 GM/DL Albumin 2.3 GM/DL Calcium Level 7.7 MG/DL Phosphorus Level 4.3 MG/DL Alkaline Phosphatase 105 U/L Aspartate Amino Transf (AST/SGOT) 14 U/L Alanine Aminotransferase (ALT/SGPT) 27 U/L Total Bilirubin 0.3 MG/DL Sodium Level 143 MEQ/L Potassium Level 3.7 MEQ/L Chloride Level 111 MEQ/L Carbon Dioxide Level 20.2 MEQ/L Anion Gap 12 MEQ/L Estimat Glomerular Filtration Rate 20 ML/MIN Administered Medications Medications (Trade) Dose Ordered Sig/Dena Route PRN Reason Start Time Stop Time Status Last Admin Dose Admin Atorvastatin Calcium (Lipitor) 10 mg DAILY PO 02/06/17 09:00 02/07/17 09:37 Metoprolol Tartrate (Lopressor) 25 mg BID PO 02/06/17 09:00 02/07/17 09:37 Sodium Chloride (NS Flush) 2 ml BID IV FLUSH 02/06/17 09:00 02/07/17 09:37 Sodium Chloride 1,000 ml @ 100 mls/hr Q10H IV 02/06/17 08:45 02/07/17 04:45 Insulin Aspart (NovoLOG SUPPLEMENTAL SCALE) 1 ACHS SLIDING SCALE SQ 02/07/17 12:00 02/07/17 12:00 Objective Remarks GENERAL: Well-nourished, well-developed patient. SKIN: Warm and dry. HEAD: Normocephalic. Dressing head dry. EYES: No scleral icterus. No injection or drainage. NECK: Supple, trachea midline. No JVD or lymphadenopathy. LYMPHATIC: No adenopathy. CARDIOVASCULAR: Regular rate and rhythm without murmurs. RESPIRATORY: Breath sounds equal bilaterally. No accessory muscle use. GASTROINTESTINAL: Abdomen soft, non-tender, nondistended. EXTREMITIES: No cyanosis, or edema. MUSCULOSKELETAL: Adequate muscle tone. Assessment/Plan Assessment 1. Severe leukocytosis with bandemia, monocytosis, neutrophilia metamyelocytes, myelocytes. This is possibly primary bone marrow disorder. The WBC has trended significantly. His baseline WBC was around 15,000. 02/07 WBC trended down to 37,000. 2. Anemia most likely due to bone marrow disorder + CKD + iron deficiency, baseline Hgb was around 9-10. The drop in Hgb is due to bleeding. 11/16 Receiving 2U PRBC. 3. Thrombocytopenia which has resolved, his prior platelet was around 70K but he had platelet clumping. Plan PLAN 1. Agree with transfusion of PRBC. 2. Await JAK2, BCR/ABL, Flowcytometry 3. They do not want bone marrrow biopsy. 4. F/u hematology clinic after d/c. 5. Can be d/c from hematology standpoint if Hgb is stable. Jean-Paul Golden MD Feb 07, 2017 16:27
[2017-02-07 18:40] LABS: BLOOD, URINE MOD (NEG); GLUCOSE,URINE NEG (NEG); KETONE, URINE NEG (NEG); NITRITE,URINE POS (NEG); PH, URINE 5.5 (5.0-8.5)
[2017-02-07 18:49] LABS: BACTERIA, URINE MANY /hpf; COMMENT (UR) CULTURE INDICATED; CULTURE IF INDICATED CULTURE INDICATED; SQUAMOUS EPITHELIAL CELL URINE 0-5 /hpf (0-5); URINE COLOR YELLOW (YELLW/STRAW); WBC, URINE INNUM /hpf (0-5)
[2017-02-08] VITALS (8 sets, daily range): BP systolic 108–140; BP diastolic 54–78; PULSE 55–80; RESP 18–20; TEMP 96.7–98.3; O2SAT 94–99
[2017-02-08] MEDS: SODIUM CHLOR 0.9% 1000 ML INJ 1,000 ML IV SCH ×3 (00:45→20:54)
[2017-02-08 06:35] LABS: AUTOMATED NEUTROPHIL # 25.5 TH/MM3 (1.8-7.7); BASOPHIL # 0.1 TH/MM3 (0-0.2); BASOPHIL % 0.2 % (0.0-2.0); EOSINOPHIL # 0.1 TH/MM3 (0-0.4); EOSINOPHIL % 0.2 % (0.0-4.0); HEMATOCRIT 25.4 % (39.0-51.0); LYMPH % 6.8 % (9.0-44.0); LYMPHOCYTE # 2.3 TH/MM3 (1.0-4.8); MEAN CELL VOLUME 80.5 FL (80.0-100.0); MEAN CORPUSCULAR HEMOGLOBIN 25.8 PG (27.0-34.0); MEAN CORPUSCULAR HGB CONC 32.1 % (32.0-36.0); MONO % 17.8 % (0.0-8.0); PLATELET COUNT 139 TH/MM3 (150-450); RED BLOOD COUNT 3.15 MIL/MM3 (4.50-5.90); RED CELL DISTRIBUTION WIDTH 16.4 % (11.6-17.2); WHITE BLOOD COUNT 34.1 TH/MM3 (4.0-11.0)
[2017-02-08 06:45] LABS: HEMO FLAGS AUTO DIFF
[2017-02-08 07:22] LABS: BANDS 8 % (0-6); CORRECTED NUCLEATED RBC 1 /100 WBC (0-0); METAMYELOCYTES 6 % (0-1); MYELOCYTES 5 % (0-0); NEUTROPHIL # MANUAL DIFF 26.9 TH/MM3 (1.8-7.7); POLYS (SEG NEUTROPHILS) 60 % (16-70); WBC DIFF SAMPLE 100
[2017-02-08 07:23] LABS: PLATELET ESTIMATE SMEAR NORMAL (NORMAL); PLATELET MORPHOLOGY NORMAL (NORMAL); SCAN/DIFF FINAL DIFF MANUAL
[2017-02-08 08:12] LABS: CHLORIDE 114 MEQ/L (98-107); POTASSIUM 3.9 MEQ/L (3.5-5.1); SODIUM (NA) 144 MEQ/L (136-145)
[2017-02-08 08:16] LABS: ANION GAP 9 MEQ/L (5-15); BICARBONATE 21.3 MEQ/L (21.0-32.0); BLOOD UREA NITROGEN 48 MG/DL (7-18)
[2017-02-08 08:19] LABS: ALT (GPT) 25 U/L (12-78); AST (GOT) 17 U/L (15-37); GLOMERULAR FILTRATION RATE 29 ML/MIN (>89)
[2017-02-08] MEDS: SODIUM CHLORIDE 0.9% FLUSH 10 ML FLUSH IV FLUSH SCH ×2 (08:20→20:54)
[2017-02-08] MEDS: ATORVASTATIN 10 MG TAB PO SCH (08:20)
[2017-02-08] MEDS: METOPROLOL TARTRATE 25 MG TAB PO SCH ×2 (08:20→20:54)
[2017-02-08] MEDS: INSULIN ASPART SUPPLEMENTAL SCALE SQ SCH ×4 (08:20→21:47)
[2017-02-08 08:21] LABS: TOTAL BILIRUBIN ADULT 0.4 MG/DL (0.2-1.0)
[2017-02-08 08:22] LABS: ALKALINE PHOSPHATASE 99 U/L (45-117)
--- NOTE | 2017-02-08 13:13 | HHI.PR ---
Subjective Remarks feeling stronger, eating, concerned as she was unable to get him to stand and transfer just before admission as he was so weak Objective Vitals Vital Signs Date Time Temp Pulse Resp B/P (MAP) Pulse Ox O2 Delivery O2 Flow Rate FiO2 02/08/17 12:00 97.0 67 20 108/58 (75) 96 02/08/17 08:00 96.9 62 20 115/54 (74) 94 02/08/17 00:00 96.7 55 20 114/57 (76) 98 02/07/17 21:43 97.4 67 20 118/51 96 02/07/17 20:00 98.2 68 18 118/57 (77) 96 02/07/17 18:15 97.6 76 18 102/58 96 02/07/17 17:46 97.6 76 18 104/60 96 02/07/17 17:34 96.5 72 18 100/50 96 02/07/17 17:14 98.6 72 18 102/58 96 02/07/17 13:18 97.6 72 18 98/58 97 Result Diagram: 02/08/1761202/08/17 0613 Objective Remarks Sitting up in hospital bed, better color, in good spirits bandage present on head and rt hand, no evidence of bleeding heart rrr not tachycardic abdomen good bowel sounds TEDs on A/P Problem List: (1) Myelodysplasia (myelodysplastic syndrome) ICD Codes: D46.9 - Myelodysplastic syndrome, unspecified Plan: acute worsening of leukocytosis and anemia, evaluated by hematology, transfusion ordered of 2 units and hgb up to 8.1 baseline is around [address] Golden who feels there may have been a reactive component to his elevated white count, needs to continue to follow up with hematology to monitor counts given comorbidities will transfuse 1 more unit prior to discharge (2) Diabetes mellitus ICD Codes: E11.9 - Type 2 diabetes mellitus without complications Status: Chronic Plan: fasting sugars in 200's has been diet controlled, covered with sliding scale (3) Basal cell carcinoma ICD Codes: C44.91 - Basal cell carcinoma of skin, unspecified Plan: s/p excision and bitemporal and rt hand, bleeding from arteriole left oriental orthodox per ER note , Seen by Dr Cid and will follow with him as outpatient (4) Renal failure ICD Codes: N19 - Unspecified kidney failure Status: Acute Plan: renal function did not show significant improvement despite hydration and asked nephrology to see, today is showing improving gfr, cont iv fluids, reviewed bp readings he did have some minor slight hypotensive episodes that may have contributed, also is now growing gram- rods in urine (5) UTI (urinary tract infection) ICD Codes: N39.0 - Urinary tract infection, site not specified Status: Acute Plan: gram neg rods in urine, start on renal dose levaquin till culture is back Discharge Planning plan to discharge to snf tommorrow after discussing with Problem Qualifiers (1) Diabetes mellitus: (2) Renal failure: Deepa Whalen MD Feb 08, 2017 13:13
[2017-02-08] MEDS ORDERED: LEVOFLOXACIN 250 MG TAB PO SCH (14:00)
--- NOTE | 2017-02-08 15:05 | PD.PLAS.PN ---
Subjective Remarks Patient stable Received 2 units PRBC and will get a third today Hb was down to 6.6 - No active bleeding at any sites. He is approx 2 weeks postop now - needs to have the kody removed from all sites. He can be discharged from my standpoint - will see him back in clinic on Saturday. No need to change dressing after the current dressing is changed - after the kody are removed. Vital Signs Date Time Temp Pulse Resp B/P (MAP) Pulse Ox O2 Delivery O2 Flow Rate FiO2 02/08/17 12:00 97.0 67 20 108/58 (75) 96 02/08/17 08:00 96.9 62 20 115/54 (74) 94 02/08/17 00:00 96.7 55 20 114/57 (76) 98 02/07/17 21:43 97.4 67 20 118/51 96 02/07/17 20:00 98.2 68 18 118/57 (77) 96 02/07/17 18:15 97.6 76 18 102/58 96 02/07/17 17:46 97.6 76 18 104/60 96 02/07/17 17:34 96.5 72 18 100/50 96 02/07/17 17:14 98.6 72 18 102/58 96 I/O 02/07/17 02/07/17 02/07/17 02/08/17 02/08/17 02/08/17 07:00 15:00 23:00 07:00 15:00 23:00 Intake Total 978 ml 925 ml 2172 ml 909 ml 678 ml Balance 978 ml 925 ml 2172 ml 909 ml 678 ml Intake Oral 675 ml 100 ml IV Total 978 ml 322 ml 809 ml 678 ml Packed Cells 1150 ml Blood Product IV Normal Saline Flush 250 ml 700 ml # Voids 2 2 1 # Bowel Movements 0 0 Laboratory Tests Test 02/07/17 18:37 02/08/17 06:13 Urine Color YELLOW Urine Turbidity CLOUDY Urine pH 5.5 Urine Specific [place] 1.011 Urine Protein 30 Urine Glucose (UA) NEG Urine Ketones NEG Urine Occult Blood MOD Urine Nitrite POS Urine Bilirubin NEG Urine Leukocyte Esterase LARGE Urine RBC 4-9 Urine WBC INNUM Urine Squamous Epithelial Cells 0-5 Urine Bacteria MANY Microscopic Urinalysis Comment CULTURE INDICATED White Blood Count 34.1 Red Blood Count 3.15 Hemoglobin 8.1 Hematocrit 25.4 Mean Corpuscular Volume 80.5 Mean Corpuscular Hemoglobin 25.8 Mean Corpuscular Hemoglobin Concent 32.1 Red Cell Distribution Width 16.4 Platelet Count 139 Mean Platelet Volume 11.1 Neutrophils (%) (Auto) 75.0 Lymphocytes (%) (Auto) 6.8 Monocytes (%) (Auto) 17.8 Eosinophils (%) (Auto) 0.2 Basophils (%) (Auto) 0.2 Neutrophils # (Auto) 25.5 Lymphocytes # (Auto) 2.3 Monocytes # (Auto) 6.1 Eosinophils # (Auto) 0.1 Basophils # (Auto) 0.1 CBC Comment AUTO DIFF Differential Total Cells Counted 100 Neutrophils % (Manual) 60 Band Neutrophils % 8 Lymphocytes % 6 Monocytes % 15 Neutrophils # (Manual) 26.9 Metamyelocytes 6 Myelocytes 5 Nucleated Red Blood Cells 1 Differential Comment FINAL DIFF MANUAL Platelet Estimate NORMAL Platelet Morphology Comment NORMAL Blood Urea Nitrogen 48 Creatinine 2.20 Random Glucose 185 Total Protein 5.8 Albumin 2.2 Calcium Level 7.6 Alkaline Phosphatase 99 Aspartate Amino Transf (AST/SGOT) 17 Alanine Aminotransferase (ALT/SGPT) 25 Total Bilirubin 0.4 Sodium Level 144 Potassium Level 3.9 Chloride Level 114 Carbon Dioxide Level 21.3 Anion Gap 9 Estimat Glomerular Filtration Rate 29 Date/Time Source Procedure Growth Status 02/07/17 18:37 Urine Clean Catch Urine Culture - Preliminary Gram Negative Aníbal Resulted Result Diagram: 02/08/17 0613 02/08/17 0613 Chencho Cid MD Feb 08, 2017 15:05
--- NOTE | 2017-02-08 16:25 | RADRPT ---
EXAM DATE/TIME: 02/08/2017 15:56 [facility] COMPARISON: No previous studies available for comparison. INDICATIONS : Increased Bun and Creatine. MEDICAL HISTORY : Hypertension. Carcinoma, bladder. CVA. CKD. Left eye blindness. SURGICAL HISTORY : Bladder cystoscopy. ENCOUNTER: Initial ACUITY: 1 week PAIN SCORE: 0/10 LOCATION: Bilateral flank MEASUREMENTS: RIGHT KIDNEY: 10.1 x 5.5 x 5.7 cm LEFT KIDNEY: 10.8 x 4.3 x 5.7 cm FINDINGS: RIGHT KIDNEY: The right kidney is normal in size and shape with cortical thinning and mild atrophic change. There a re multiple cysts identified. The largest measures 5.1 x 4.0 x 6.3 cm and extends off the upper pole. There is a cyst in the central kidney measuring 2.7 x 2.3 x 2.1 cm. There is renal calculi in the lo wer pole measuring approximately 1.6 x 1.1 cm in diameter with posterior shadowing. LEFT KIDNEY: The left kidney is normal in size and shape with mild cortical atrophy. There are multiple left renal cysts as well. The 2 largest are located in the upper pole measuring 5.8 x 4.5 x 5.9 cm and 3.7 x 2. 3 x 3.8 cm. There is no renal calculi or obstruction. BLADDER: Within normal limits given the degree of distension. Prostate gland is enlarged. CONCLUSION: 1. Nonobstructing right renal calculus. 2. Bilateral renal cysts. 3. Large prostate gland. Hernando Coleman MD on February 08, 2017 at 16:18 Board Certified Radiologist. This report was verified electronically.
--- NOTE | 2017-02-08 16:41 | MB ---
cc: OSCAR BARTON MD DATE OF CONSULTATION 02/08/17 REASON FOR CONSULTATION Chronic kidney disease, acute kidney injury and elevated creatinine. HISTORY OF PRESENT ILLNESS This is an 86-year-old male with past medical history of diabetes mellitus controlled on diet, history of hypertension, chronic kidney disease, benign prostatic hypertrophy, cerebrovascular accident, history of bladder cancer, hyperlipidemia, multiple skin cancer, possible myeloproliferative disorder, was admitted to the hospital because of anemia and leukocytosis. I was called to see the patient because of elevated BUN and creatinine. The patient has known history of chronic kidney disease. His baseline creatinine seems to be in the range of 1.7 to 2.1. He was admitted with creatinine of 2.1 and then it went up to 3.1 and now it is 2.2. The patient has urinary incontinence. According to he was not eating well two or three days before he was admitted but he was drinking enough fluids. There is no history of nausea or vomiting. There is no history of diarrhea. There is no history of taking any nonsteroidal anti-inflammatory drugs. The patient has multiple skin cancer removed on January 24 and then he scratched his head and it started bleeding from his forehead. The called the fire department and he was brought to the emergency room. The hemoglobin was found to be low, 8.4 was the first one and the second reading was 6.6 and he got blood transfusion, now it is 8.1. bleeding has been stopped. PAST MEDICAL HISTORY Hypertension, cerebrovascular accident, diabetes mellitus, hyperlipidemia, benign prostatic hypertrophy, skin cancer, history of bladder cancer, possible myeloproliferative disorder, chronic kidney disease. PAST SURGICAL HISTORY History of cystoscopy, basal cell removal. REVIEW OF SYSTEMS The patient has generalized weakness, feeling tired. He is mainly bedridden since he has the stroke. He was walking a little with the support of but has been in the bed for the last few weeks. No history of nausea or vomiting. Denies any shortness breath or chest pain. No palpitations. His urine output is adequate according to . He was not eating 2 days or 3 days before coming to the hospital but was drinking enough fluid, now his appetite seems to be improving. SOCIAL HISTORY The patient is , lives with his . He has past history of smoking, stopped in 2005. There is no history of heavy alcoholism. FAMILY HISTORY Noncontributory. ALLERGIES ALLERGIC TO PENICILLIN G. MEDICATIONS Currently gettin. Normal saline 100 ml an hour. 2. Metoprolol 25 milligrams b.i.d. 3. Lipitor 10 milligrams once a day. 4. Levaquin 250 milligrams once a day. 5. Insulin aspart sliding scale. 6. Zofran as needed. 7. Narcan as needed. PHYSICAL EXAMINATION GENERAL: The patient is awake and alert. He is not in acute distress. VITAL SIGNS: His last blood pressure is 120/69, his blood pressure has been on the lower side and it was much lower 2 days ago. The lowest recorded was 82/48 on 02/06. HEENT: Pupils are mid constricted. Nonicteric sclera, conjunctiva pale. NECK: Supple. JVD is not elevated. LUNGS: The patient has bilateral decreased air entry with scattered wheezing. HEART: S1-S2, regular rhythm. ABDOMEN: Abdomen is soft, lax. There is no tenderness. Bowel sounds positive. EXTREMITIES: There is mild edema. INVESTIGATION WBC count is 34.1, hemoglobin is 8.1, platelet count of 139, sodium is 144, potassium 3.9, chloride 114, bicarb 21.3, BUN 48, creatinine 2.2, glucose 185, calcium 7.6. AST, ALT normal, total protein is 5.8 with albumin of 2.2. INR 1.1. Urinalysis showing that there is protein of 30 and large leukocyte esterase with RBC 4 to 9 and WBC innumerable. Urine culture showing gram-negative rods. IMAGING STUDIES The patient has chest x-ray done which shows no acute cardiopulmonary disease. ASSESSMENT/PLAN 1. Chronic kidney disease with acute kidney injury. 2. Urinary tract infection. 3. Possibly myeloproliferative disorder. 4. Skin cancer. 5. History of bladder cancer. 6. History of cerebrovascular accident. The patient has improvement in the creatinine, most likely he has acute kidney injury because of either dehydration or possibility of ATN because of the hypotension or infection. At present it seems like he is passing urine. He has incontinence. I will get the ultrasound of the kidneys. Agree with continuing the IV fluid, if he is eating can be reduced or stopped. Continue the antibiotic, follow the sensitivity result for the urine culture. Avoid any nephrotoxins. Thank you for the consultation. I will follow the patient while he is in the hospital. Oscar Barton MD AQJ/EO /3:38 PM /4:25 PM
--- NOTE | 2017-02-08 16:43 | PD.ONC.PN ---
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 No acute events over the past 24 hours specifically no additional bleeding from surgical site on the scalp. He is receiving an additional unit of packed red blood cells at this time for hemoglobin of 8.1 g/dL. Per nursing staff patient is not verbalizing any acute complaints. He is presently asleep. Objective Data Date Time Temp Pulse Resp B/P (MAP) Pulse Ox O2 Delivery O2 Flow Rate FiO2 02/08/17 15:50 97.8 76 18 120/78 96 02/08/17 15:26 98.0 80 18 120/69 96 02/08/17 15:05 97.8 77 18 112/68 99 02/08/17 12:00 97.0 67 20 108/58 (75) 96 02/08/17 08:00 96.9 62 20 115/54 (74) 94 02/08/17 00:00 96.7 55 20 114/57 (76) 98 02/07/17 21:43 97.4 67 20 118/51 96 02/07/17 20:00 98.2 68 18 118/57 (77) 96 02/07/17 18:15 97.6 76 18 102/58 96 02/07/17 17:46 97.6 76 18 104/60 96 02/07/17 17:34 96.5 72 18 100/50 96 02/07/17 17:14 98.6 72 18 102/58 96 02/08/17 02/08/17 02/08/17 07:00 15:00 23:00 Intake Total 909 ml 1403 ml Balance 909 ml 1403 ml Result Diagram: 02/08/1713 02/08/17 0613 Laboratory Results Laboratory Tests Test 02/07/17 18:37 02/08/17 06:13 Urine Color YELLOW Urine Turbidity CLOUDY Urine pH 5.5 Urine Specific [place] 1.011 Urine Protein 30 mg/dL Urine Glucose (UA) NEG mg/dL Urine Ketones NEG mg/dL Urine Occult Blood MOD Urine Nitrite POS Urine Bilirubin NEG Urine Leukocyte Esterase LARGE Urine RBC 4-9 /hpf Urine WBC INNUM /hpf Urine Squamous Epithelial Cells 0-5 /hpf Urine Bacteria MANY /hpf Microscopic Urinalysis Comment CULTURE INDICATED White Blood Count 34.1 TH/MM3 Red Blood Count 3.15 MIL/MM3 Hemoglobin 8.1 GM/DL Hematocrit 25.4 % Mean Corpuscular Volume 80.5 FL Mean Corpuscular Hemoglobin 25.8 PG Mean Corpuscular Hemoglobin Concent 32.1 % Red Cell Distribution Width 16.4 % Platelet Count 139 TH/MM3 Mean Platelet Volume 11.1 FL Neutrophils (%) (Auto) 75.0 % Lymphocytes (%) (Auto) 6.8 % Monocytes (%) (Auto) 17.8 % Eosinophils (%) (Auto) 0.2 % Basophils (%) (Auto) 0.2 % Neutrophils # (Auto) 25.5 TH/MM3 Lymphocytes # (Auto) 2.3 TH/MM3 Monocytes # (Auto) 6.1 TH/MM3 Eosinophils # (Auto) 0.1 TH/MM3 Basophils # (Auto) 0.1 TH/MM3 CBC Comment AUTO DIFF Differential Total Cells Counted 100 Neutrophils % (Manual) 60 % Band Neutrophils % 8 % Lymphocytes % 6 % Monocytes % 15 % Neutrophils # (Manual) 26.9 TH/MM3 Metamyelocytes 6 % Myelocytes 5 % Nucleated Red Blood Cells 1 /100 WBC Differential Comment FINAL DIFF MANUAL Platelet Estimate NORMAL Platelet Morphology Comment NORMAL Blood Urea Nitrogen 48 MG/DL Creatinine 2.20 MG/DL Random Glucose 185 MG/DL Total Protein 5.8 GM/DL Albumin 2.2 GM/DL Calcium Level 7.6 MG/DL Alkaline Phosphatase 99 U/L Aspartate Amino Transf (AST/SGOT) 17 U/L Alanine Aminotransferase (ALT/SGPT) 25 U/L Total Bilirubin 0.4 MG/DL Sodium Level 144 MEQ/L Potassium Level 3.9 MEQ/L Chloride Level 114 MEQ/L Carbon Dioxide Level 21.3 MEQ/L Anion Gap 9 MEQ/L Estimat Glomerular Filtration Rate 29 ML/MIN Culture Results Microbiology Date/Time Source Procedure Growth Status 02/07/17 18:37 Urine Clean Catch Urine Culture - Preliminary Gram Negative Aníbal Resulted Imaging Studies Last 24 hours Impressions Renal Ultrasound 02/08/17 0000 Signed Impressions: Service Date/Time: Wednesday, February 08, 2017 15:56 - CONCLUSION: 1. Nonobstructing right renal calculus. 2. Bilateral renal cysts. 3. Large prostate gland. Hernando Coleman MD Administered Medications Medications (Trade) Dose Ordered Sig/Dena Route PRN Reason Start Time Stop Time Status Last Admin Dose Admin Atorvastatin Calcium (Lipitor) 10 mg DAILY PO 02/06/17 09:00 02/08/17 08:20 Metoprolol Tartrate (Lopressor) 25 mg BID PO 02/06/17 09:00 02/08/17 08:20 Sodium Chloride (NS Flush) 2 ml BID IV FLUSH 02/06/17 09:00 02/07/17 21:39 Sodium Chloride 1,000 ml @ 100 mls/hr Q10H IV 02/06/17 08:45 02/08/17 06:02 Insulin Aspart (NovoLOG SUPPLEMENTAL SCALE) 1 ACHS SLIDING SCALE SQ 02/07/17 12:00 02/08/17 15:47 Levofloxacin (Levaquin) 250 mg DAILY PO 02/08/17 14:00 02/08/17 15:47 Objective Remarks GENERAL: Elderly and frail male laying in bed, he appears to be pale. Clean dressing on both side of his for head along the temporal area. He is asleep, he snoring, gently attempted to arouse him .SKIN: Cool and dry. HEAD: Normocephalic. Dressing head dry, no bloodstains. EYES: No scleral icterus. No injection or drainage. NECK: Supple, trachea midline. No JVD or lymphadenopathy. LYMPHATIC: No adenopathy. CARDIOVASCULAR: Regular rate and rhythm without murmurs. RESPIRATORY: Breath sounds equal bilaterally. No accessory muscle use. GASTROINTESTINAL: Abdomen soft, non-tender, nondistended. EXTREMITIES: No cyanosis, or edema. MUSCULOSKELETAL: Generally decreased muscle mass and tone. Assessment/Plan Assessment 86-year-old male with underlying dementia, chronic leukocytosis and cell count abnormalities. Peripheral flow cytometry points towards an underlying diagnosis of myelodysplastic syndrome/myeloproliferative neoplasm. He is on supportive care. He was admitted to the hospital with fatigue and weakness and symptomatic anemia after he underwent excisional biopsies of basal cell carcinoma involving bilateral temples. He has been treated with supportive transfusions and will likely be discharged home over the weekend. Plan 1. Myelodysplastic syndrome/myeloproliferative neoplasm associated with symptomatic anemia: Currently receiving an additional unit of packed red blood cells. 2. Await JAK2, BCR/ABL, Flowcytometry May discharged home over the weekend with outpatient follow-up with Dr. Golden. Chano Martinez MD Feb 08, 2017 16:43
[2017-02-09] VITALS: BP 145/62; PULSE 62; RESP 18; TEMP 98.4; O2SAT 95
[2017-02-09] MEDS: SODIUM CHLOR 0.9% 1000 ML INJ 1,000 ML IV SCH (04:15)
[2017-02-09 07:10] LABS: AUTOMATED NEUTROPHIL # 28.6 TH/MM3 (1.8-7.7); BASOPHIL # 0.1 TH/MM3 (0-0.2); BASOPHIL % 0.3 % (0.0-2.0); EOSINOPHIL # 0.1 TH/MM3 (0-0.4); EOSINOPHIL % 0.2 % (0.0-4.0); HEMATOCRIT 27.5 % (39.0-51.0); LYMPH % 5.7 % (9.0-44.0); LYMPHOCYTE # 2.2 TH/MM3 (1.0-4.8); MEAN CELL VOLUME 80.6 FL (80.0-100.0); MEAN CORPUSCULAR HEMOGLOBIN 26.8 PG (27.0-34.0); MEAN CORPUSCULAR HGB CONC 33.3 % (32.0-36.0); MONO % 18.3 % (0.0-8.0); NEUT % 75.5 % (16.0-70.0); PLATELET COUNT 137 TH/MM3 (150-450); RED BLOOD COUNT 3.41 MIL/MM3 (4.50-5.90); RED CELL DISTRIBUTION WIDTH 15.5 % (11.6-17.2); WHITE BLOOD COUNT 37.9 TH/MM3 (4.0-11.0)
[2017-02-09 07:14] LABS: HEMO FLAGS AUTO DIFF
[2017-02-09 07:26] LABS: POTASSIUM 3.6 MEQ/L (3.5-5.1)
[2017-02-09 07:30] VITALS: BP 142/63; PULSE 57; RESP 20; TEMP 96.5; O2SAT 96
[2017-02-09 07:40] LABS: BICARBONATE 19.8 MEQ/L (21.0-32.0)
--- NOTE | 2017-02-09 07:46 | HHI.PR ---
Subjective Remarks Patient remained stable overnight. Generally sleeps most of the night and several hours a day per his . His mentation is stable at his baseline of confusion. After discussion with the regarding his relatively large size in her small size and his inability to transfer safely, she is agreeable to short-term rehabilitation placement. They still do not want bone marrow sampling. We have discussed hospice and she is considering but not ready for eval of this point. Objective Vitals Vital Signs Date Time Temp Pulse Resp B/P (MAP) Pulse Ox O2 Delivery O2 Flow Rate FiO2 02/09/17 00:00 98.4 62 18 145/62 (89) 95 02/08/17 20:00 98.3 62 18 140/61 (87) 95 02/08/17 16:00 97.1 59 18 123/57 (79) 97 02/08/17 15:50 97.8 76 18 120/78 96 02/08/17 15:26 98.0 80 18 120/69 96 02/08/17 15:05 97.8 77 18 112/68 99 02/08/17 12:00 97.0 67 20 108/58 (75) 96 02/08/17 08:00 96.9 62 20 115/54 (74) 94 GENERAL: Sleeping soundly, arouses to tactile stimulation. Baseline confusion noted. is present during exam. SKIN: Warm and dry. Purpuric lesions on arms and distal lower extremities. HEAD: Normocephalic. Left temporal wound intact with no bleeding. EYES: No scleral icterus. No injection or drainage. NECK: Supple, trachea midline. No JVD or lymphadenopathy. CARDIOVASCULAR: Regular rate and rhythm without murmurs, gallops, or rubs. RESPIRATORY: Breath sounds equal bilaterally. No accessory muscle use. No wheeze. GASTROINTESTINAL: Abdomen soft, nondistended. Bowel sounds normal. MUSCULOSKELETAL: No cyanosis. 1+ edema bilateral distal lower extremities. MEERA in place NEURO: Sleeping soundly, moves all extremities to tactile stimulation, baseline confusion. Result Diagram: 02/09/1764402/09/17644 Vascular Central Line Catheter: No A/P Problem List: (1) Myelodysplasia (myelodysplastic syndrome) ICD Codes: D46.9 - Myelodysplastic syndrome, unspecified Plan: acute worsening of leukocytosis and anemia, evaluated by hematology, received 3 units of packed red cells and hemoglobin above 9 now which is his baseline. Follow-up with hematology/oncology. (2) Diabetes mellitus ICD Codes: E11.9 - Type 2 diabetes mellitus without complications Status: Chronic Plan: fasting sugars in 200's has been diet controlled, covered with sliding scale Sugars still running in the 180s to 200s. We'll not be overly aggressive. We'll add a very low dose of glyburide daily as his renal function would prohibit metformin use. We'll need to monitor sugars closely to make sure no hypoglycemia is occurring. (3) Basal cell carcinoma ICD Codes: C44.91 - Basal cell carcinoma of skin, unspecified Plan: s/p excision and bitemporal and rt hand, bleeding from arteriole left [facility] per ER note , Seen by Dr Cid and will follow with him as outpatient (4) Renal failure ICD Codes: N19 - Unspecified kidney failure Status: Acute Plan: Renal indices have improved. Renal ultrasound and nephrology notes reviewed. Follow as outpatient. (5) UTI (urinary tract infection) ICD Codes: N39.0 - Urinary tract infection, site not specified Status: Acute Plan: gram neg rods in urine, was started on low-dose Levaquin initially but I' ll switch to Rocephin. He should be sufficiently treated after 3 doses of that and dosing would not be altered by his fluctuating renal indices. Discharge Planning plan to discharge to snf later today. As noted above, hospice was discussed and is considering. Problem Qualifiers (1) Diabetes mellitus: (2) Renal failure: Mark Washington MD PhD Feb 09, 2017 07:46
[2017-02-09] MEDS ORDERED: NOVOLOGSS SQ (07:51)
[2017-02-09] MEDS ORDERED: CEFT1INJ2 IV (07:51)
[2017-02-09] MEDS ORDERED: cefTRIAXone INJ 1,000 MG in SODIUM CHLORIDE 0.9% INJ 100 ML IV SCH (08:00)
[2017-02-09] MEDS: INSULIN ASPART SUPPLEMENTAL SCALE SQ SCH (08:00)
--- NOTE | 2017-02-09 08:02 | HHI.DS ---
Discharge Summary Admission Date Feb 06, 2017 at 08:29 Discharge Date: Feb 09, 2017 Admitting Diagnosis anemia and skin tag bleeding (1) Myelodysplasia (myelodysplastic syndrome) Diagnosis: Principal ICD Codes: D46.9 - Myelodysplastic syndrome, unspecified (2) Diabetes mellitus Diagnosis: Secondary ICD Codes: E11.9 - Type 2 diabetes mellitus without complications Status: Chronic (3) Basal cell carcinoma Diagnosis: Secondary ICD Codes: C44.91 - Basal cell carcinoma of skin, unspecified (4) Renal failure Diagnosis: Secondary ICD Codes: N19 - Unspecified kidney failure Status: Acute (5) UTI (urinary tract infection) Diagnosis: Secondary ICD Codes: N39.0 - Urinary tract infection, site not specified Status: Acute Consultants Hematology/oncology- Chantel Xiao and Juan Nephrology- Dr Beverly Plastic surgery- Dr Cid Brief History Mr. Berman is a very pleasant 86-year-old patient of Dr. Patel who had excision of multiple basal cell carcinomas by Dr. Cid on January 24. He had bitemporal as well on the dorsum on his right hand. Apparently the patient has done well after his procedures and actually has had a followup appointment Dr. 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 She called the fire department and they actually had [facility] come and he was brought to the emergency room. There, he was seen by the ER physician and apparently when the area was examined, it looked like it was pumping slightly. He was seen by the ER doctor who felt that the bleeding came from an arterial that was compressible and the area was cauterized. However, there was a concern that there was a significant amount of blood loss. On evaluation of his lab work, his hemoglobin was 8.4, his hematocrit was 25.9. He also had a leukocytosis of 70.4. Apparently the patient does have a history of anemia and actually thrombocytopenia for which he has been following with Dr. Golden. He never has had a significant leukocytosis. The most his white count has been elevated has been, it looks like, 15,000. His anemia was being managed by iron replacement and at the time of admission for the procedure, his hemoglobin was 9.8. When he was in the emergency room last week, it was 9.5, today it was 8.4. His hematocrit had been fairly stable at 30.8, 29.5 and now dropped to 25.9. Because of the anemia and the significant leukocytosis, we decided to admit the patient. The patient states he has been doing fairly well. He does not complain of any chest pain or shortness of breath. He is not very active. 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 He does have some bruises around his upper extremities, but his states that they had moved to a new apartment and since moving there he has had more issues with some balance and he has had a couple of falls. No lightheadedness or dizziness. CBC/BMP: 02/09/17 0645 02/09/17 0645 Significant Findings Laboratory Tests Test 02/06/17 18:40 02/07/17 08:30 02/07/17 18:37 02/08/17 06:13 Uric Acid 9.1 MG/DL (2.6-7.2) Iron Level 14 MCG/DL (65-175) Total Iron Binding Capacity 188 MCG/DL (250-450) Percent Iron Saturation 7.5 % (20-50) Vitamin B12 Level 1019 PG/ML (193-986) Folate GREATER THAN 20.0 NG/ML White Blood Count 37.9 TH/MM3 (4.0-11.0) 34.1 TH/MM3 (4.0-11.0) Red Blood Count 2.42 MIL/MM3 (4.50-5.90) 3.15 MIL/MM3 (4.50-5.90) Hemoglobin 6.6 GM/DL (13.0-17.0) 8.1 GM/DL (13.0-17.0) Hematocrit 19.8 % (39.0-51.0) 25.4 % (39.0-51.0) Red Cell Distribution Width 18.2 % (11.6-17.2) Platelet Count 137 TH/MM3 (150-450) 139 TH/MM3 (150-450) Band Neutrophils % 10 % (0-6) 8 % (0-6) Monocytes % 22 % (0-8) 15 % (0-8) Neutrophils # (Manual) 26.2 TH/MM3 (1.8-7.7) 26.9 TH/MM3 (1.8-7.7) Metamyelocytes 4 % (0-1) 6 % (0-1) Myelocytes 3 % (0-0) 5 % (0-0) Promyelocytes 1 % (0-0) Blood Urea Nitrogen 57 MG/DL (7-18) 48 MG/DL (7-18) Creatinine 3.00 MG/DL (0.60-1.30) 2.20 MG/DL (0.60-1.30) Random Glucose 202 MG/DL (74-106) 185 MG/DL (74-106) Total Protein 6.1 GM/DL (6.4-8.2) 5.8 GM/DL (6.4-8.2) Albumin 2.3 GM/DL (3.4-5.0) 2.2 GM/DL (3.4-5.0) Calcium Level 7.7 MG/DL (8.5-10.1) 7.6 MG/DL (8.5-10.1) Aspartate Amino Transf (AST/SGOT) 14 U/L (15-37) Chloride Level 111 MEQ/L (98-107) 114 MEQ/L (98-107) Carbon Dioxide Level 20.2 MEQ/L (21.0-32.0) Estimat Glomerular Filtration Rate 20 ML/MIN (>89) 29 ML/MIN (>89) Urine Turbidity CLOUDY (CLEAR) Urine Protein 30 mg/dL (NEG-TRACE) Urine Occult Blood MOD (NEG) Urine Nitrite POS (NEG) Urine Leukocyte Esterase LARGE (NEG) Urine RBC 4-9 /hpf (0-3) Urine WBC INNUM /hpf (0-5) Urine Bacteria MANY /hpf (NONE) Mean Corpuscular Hemoglobin 25.8 PG (27.0-34.0) Mean Platelet Volume 11.1 FL (7.0-11.0) Neutrophils (%) (Auto) 75.0 % (16.0-70.0) Lymphocytes (%) (Auto) 6.8 % (9.0-44.0) Monocytes (%) (Auto) 17.8 % (0.0-8.0) Neutrophils # (Auto) 25.5 TH/MM3 (1.8-7.7) Monocytes # (Auto) 6.1 TH/MM3 (0-0.9) Lymphocytes % 6 % (9-44) Nucleated Red Blood Cells 1 /100 WBC (0-0) Test 02/09/17 06:45 White Blood Count 37.9 TH/MM3 (4.0-11.0) Red Blood Count 3.41 MIL/MM3 (4.50-5.90) Hemoglobin 9.1 GM/DL (13.0-17.0) Hematocrit 27.5 % (39.0-51.0) Mean Corpuscular Hemoglobin 26.8 PG (27.0-34.0) Platelet Count 137 TH/MM3 (150-450) Neutrophils (%) (Auto) 75.5 % (16.0-70.0) Lymphocytes (%) (Auto) 5.7 % (9.0-44.0) Monocytes (%) (Auto) 18.3 % (0.0-8.0) Neutrophils # (Auto) 28.6 TH/MM3 (1.8-7.7) Monocytes # (Auto) 6.9 TH/MM3 (0-0.9) Blood Urea Nitrogen 35 MG/DL (7-18) Creatinine 1.80 MG/DL (0.60-1.30) Random Glucose 142 MG/DL (74-106) Calcium Level 7.3 MG/DL (8.5-10.1) Chloride Level 115 MEQ/L (98-107) Carbon Dioxide Level 19.8 MEQ/L (21.0-32.0) Estimat Glomerular Filtration Rate 36 ML/MIN (>89) Imaging Last 72 hours Impressions Renal Ultrasound 02/08/17 0000 Signed Impressions: Service Date/Time: Wednesday, February 08, 2017 15:56 - CONCLUSION: 1. Nonobstructing right renal calculus. 2. Bilateral renal cysts. 3. Large prostate gland. Hernando Coleman MD Hospital Course Patient admitted for bleeding from left temporal postsurgical wound. He was noted to be significantly anemic with a hemoglobin of 6.6 and had significant elevated white count in the 30,000 range. He has known history of leukocytosis and anemia as well as thrombocytopenia. It is believed he has an underlying myeloproliferative disorder. Current white count elevation was believed to be in part due to some reactivity of possibly associated with his UTI. White count remained relatively stable. He was transfused 3 units of packed red blood cells and his hemoglobin was 9.1 on day of discharge. This hemoglobin is reportedly closer to his baseline. He has had no more bleeding from the left. Temporal wound. He was evaluated by his plastic surgeon for this wound during the hospital stay. He was noted to have somewhat worsening renal insufficiency with a creatinine of 3.1. This generally improved with IV fluids but somewhat slowly. He was evaluated by nephrology and renal ultrasound was performed which did not demonstrate any acute findings. He does have an enlarged prostate which could contribute to his renal insufficiency. He was placed on antibiotics for his UTI which currently is growing gram- negative rods. I do not have the final culture and sensitivity results at this point however he is not running fevers. I will convert him to Rocephin for 3 day course. I did discuss the severity of his underlying bone marrow abnormality with his and with the patient. Patient is somewhat demented and I'm not sure he fully understands however his is cognitively intact and understands seriousness of his illness. They have again declined bone marrow biopsy. They will follow with oncology as an outpatient as they have established with Dr. Golden. Genetic mutation analysis is pending. We discussed long-term care options including the possibility of hospice. is considering this but is not ready for evaluation at this point. Patient will be discharged to senior care facility for a few days to help with strengthening and transfers. Pt Condition on Discharge: Stable Discharge Disposition: Discharge to SNF Discharge Instructions DIET: Follow Instructions for: Diabetic Diet Activities you can perform: Weight Bearing as Magdiel Other Activity Instructions: Will need assistance with ambulation and weightbearing activities in rehabilitation Center. Follow up Referrals: Oncology/Hematology PCP Follow-up New Orders: CBC WITH DIFF New Medications: Ceftriaxone Inj (Ceftriaxone Inj) 1 Gm/50 Ml Bagp 1 GM IV Q24H for Infection for 3 Days, BAG 0 Refills Insulin Aspart Inj (Novolog Inj) 100 Unit/Ml Inj 1 UNITS SQ ACHS SLIDING SCALE for dm for 30 Days, #30 INJECTION Continued Medications: Ascorbic Acid (Vitamin C) 250 Mg Tab 500 MG PO for Nutritional Supplement, TAB 0 Refills Atorvastatin (Lipitor) 10 Mg Tab 10 MG PO DAILY for Cholesterol Management, #30 TAB 0 Refills Metoprolol Tartrate (Metoprolol Tartrate) 25 Mg Tab 25 MG PO BID, #60 TAB 0 Refills Multiple Vitamin (Multi Vitamin Daily) 1 Tab Tab PO DAILY Discontinued Medications: Oxycodone-Acetaminophen (Oxycodone-Acetaminophen) 7.5-325 mg Tab 1 TAB PO Q4H PRN for PAIN for 5 Days, #30 TAB Mark Washington MD PhD Feb 09, 2017 08:02
[2017-02-09 08:08] LABS: BANDS 5 % (0-6); EOSINOPHILS 1 % (0-4); METAMYELOCYTES 2 % (0-1); MYELOCYTES 1 % (0-0); NEUTROPHIL # MANUAL DIFF 29.9 TH/MM3 (1.8-7.7); POLYS (SEG NEUTROPHILS) 71 % (16-70); SCAN/DIFF FINAL DIFF MANUAL; WBC DIFF SAMPLE 100
[2017-02-09] MEDS ORDERED: GLIM1TAB PO (08:10)
[2017-02-09 08:11] LABS: CALCIUM-PROTEIN CORRECTED 7.8 MG/DL (8.5-10.1)
[2017-02-09] MEDS: SODIUM CHLORIDE 0.9% FLUSH 10 ML FLUSH IV FLUSH SCH (08:48)
[2017-02-09] MEDS: METOPROLOL TARTRATE 25 MG TAB PO SCH (09:03)
[2017-02-09] MEDS: ATORVASTATIN 10 MG TAB PO SCH (09:03)
== END 2017-02-09 12:08 | DRG 920 ==
LOC: PHED 05:27 → PHEDA 08:29 → PH3A 09:10
PROVIDERS: ADMIT Legal Medicine; ATTEND Legal Medicine
PROC: 3E00XGC Introduction of Other Therapeutic Substance into Skin and Mucous Membranes, External Approach (ICD-10-PCS; principal; 2017-02-06)
PROC: 30233N1 Transfusion of Nonautologous Red Blood Cells into Peripheral Vein, Percutaneous Approach (ICD-10-PCS; 2017-02-07)
DX: L76.21 Postprocedural hemorrhage of skin and subcutaneous tissue following a dermatologic procedure (principal); I69.351 Hemiplegia and hemiparesis following cerebral infarction affecting right dominant side; D69.6 Thrombocytopenia, unspecified; N18.3 Chronic kidney disease, stage 3 (moderate); I47.1 Supraventricular tachycardia; C94.6 Myelodysplastic disease, not elsewhere classified; F03.90 Unspecified dementia, unspecified severity, without behavioral disturbance, psychotic disturbance, mood disturbance, and anxiety; N39.0 Urinary tract infection, site not specified; E11.9 Type 2 diabetes mellitus without complications; I69.322 Dysarthria following cerebral infarction; I12.9 Hypertensive chronic kidney disease with stage 1 through stage 4 chronic kidney disease, or unspecified chronic kidney disease; D50.9 Iron deficiency anemia, unspecified; Z85.828 Personal history of other malignant neoplasm of skin; Z99.3 Dependence on wheelchair; Z85.51 Personal history of malignant neoplasm of bladder; E78.5 Hyperlipidemia, unspecified; N40.0 Benign prostatic hyperplasia without lower urinary tract symptoms; E78.00 Pure hypercholesterolemia, unspecified; L29.9 Pruritus, unspecified; S00.01XA Abrasion of scalp, initial encounter; X58.XXXA Exposure to other specified factors, initial encounter; Y92.009 Unspecified place in unspecified non-institutional (private) residence as the place of occurrence of the external cause; Z87.891 Personal history of nicotine dependence; Z88.0 Allergy status to penicillin
CPT/HCPCS: 12001; 36430; 71010; 76775; 80048; 80053; 81001; 82607; 82728; 82746; 82948; 83540; 83550; 83615; 84100; 84155; 84550; 85007; 85027; 85610; 86850; 86900; 86901; 86920; 87077; 87086; 87186; J0696; J1815; J7030; J7050; P9016